=== PATIENT | female | born 1980 | race Caucasian/White ===

== ENCOUNTER 2024-12-05 11:45 | Emergency (ER) | payer SELFPAY ==
[~2024-12-05] VITALS: Ht 167.6 cm; Wt 54.4 kg
[2024-12-05 11:45] VITALS: BP 136/90; PULSE 105; RESP 18; TEMP 36.61404; O2SAT 100
[2024-12-05 12:29] LABS: BASOPHIL % 0.6 % (0.1-1.2); EOSINOPHIL # 0.2 10^3/uL (0.0-0.2); HEMOGLOBIN 13.4 g/dL (12.0-15.0); LYMPHOCYTES # 1.04 10^3/uL1 (1.0-4.8); LYMPHOCYTES % 19.7 % (24.0-44.0); MEAN CORP HGB 29.5 pg (26-34); MEAN CORP HGB CONCENTRATION 33.5 g/dL (33-36.5); MEAN CORP VOLUME 88.1 fL (78-100); MONOCYTES # 0.4 10^3/uL (0.3-0.8); NEUTROPHIL # 3.6 10^3/uL (1.8-7.7); NEUTROPHILS % 67.5 % (41.0-85.0); PLATELET COUNT 189 10^3/uL (150-400); RED BLOOD CELL 4.54 10^6/uL (4.00-5.20); RED CELL DISTRIBUTION WIDTH 12.2 % (11.5-14.5); WHITE BLOOD CELL 5.3 10^3/uL (4.5-11.0)
[2024-12-05 12:30] LABS: +ADD MANUAL DIFF(NO CHRG) NO
[2024-12-05] MEDS ORDERED: NS 1000ML 1,000 ML ONE (12:32)
[2024-12-05] MEDS ORDERED: ZOFRAN ONE (12:32)
[2024-12-05] MEDS: NS 1000ML 1,000 ML IV STA (12:38)
[2024-12-05] MEDS: ZOFRAN IV STA (12:38)
[2024-12-05 12:45] VITALS: BP 124/72; PULSE 105; RESP 18; TEMP 97.8; O2SAT 100
[2024-12-05 12:47] LABS: ALBUMIN(ML) 4.3 g/dL (3.4-5.0); ALBUMIN/GLOBULIN RATIO 1.343; ANION GAP 18.5; BUN/CREATININE RATIO 16.41 (10.0-20.0); CALCIUM 10.1 mg/dL (8.4-10.5); CARBON DIOXIDE 19.6 mmol/L (20.0-32); CREATININE SERUM 0.67 mg/dL (0.59-1.40); EST GFR, NON-AA 95.2 (>/=60); POTASSIUM 4.1 mmol/L (3.6-5.2)
[2024-12-05 13:51] VITALS: BP 116/67; PULSE 105; RESP 18; TEMP 97.8; O2SAT 100
== END 2024-12-05 13:55 | disposition home or self-care (01) ==
LOC: ER 11:45
DX: E86.0 Dehydration (principal); R11.2 Nausea with vomiting, unspecified; E11.65 Type 2 diabetes mellitus with hyperglycemia; E78.00 Pure hypercholesterolemia, unspecified; I25.2 Old myocardial infarction; F12.90 Cannabis use, unspecified, uncomplicated; Z91.148 Patient's other noncompliance with medication regimen for other reason
CPT/HCPCS: 99284; 96374; 96361; 80053; 85025; 82948; 36415; 93005; J7030; J2405

== ENCOUNTER 2024-12-06 02:54 | Emergency (ER) | payer SELFPAY ==
[~2024-12-06] VITALS: Ht 165.1 cm; Wt 63.5 kg
[2024-12-06 03:22] VITALS: BP 136/80; PULSE 104; RESP 18; TEMP 97.9; O2SAT 99
[2024-12-06 03:23] LABS: BASOPHIL % 0.4 % (0.1-1.2); EOSINOPHIL % 0.1 % (0.0-5.0); HEMATOCRIT(ML) 40.7 % (36.0-46.0); HEMOGLOBIN 13.1 g/dL (12.0-15.0); LYMPHOCYTES # 1.33 10^3/uL1 (1.0-4.8); MEAN CORP HGB 29.2 pg (26-34); MEAN CORP HGB CONCENTRATION 32.2 g/dL (33-36.5); MEAN CORP VOLUME 90.8 fL (78-100); MONOCYTES # 0.5 10^3/uL (0.3-0.8); MONOCYTES % 5.5 % (5.0-12.0); NEUTROPHIL # 6.4 10^3/uL (1.8-7.7); NEUTROPHILS % 77.6 % (41.0-85.0); PLATELET COUNT 213 10^3/uL (150-400); RED BLOOD CELL 4.48 10^6/uL (4.00-5.20); RED CELL DISTRIBUTION WIDTH 12.5 % (11.5-14.5); WHITE BLOOD CELL 8.3 10^3/uL (4.5-11.0)
[2024-12-06 03:25] LABS: +ADD MANUAL DIFF(NO CHRG) NO
[2024-12-06] MEDS ORDERED: HALDOL ONE (03:26)
[2024-12-06] MEDS ORDERED: NS 1000ML 1,000 ML ONE (03:26)
[2024-12-06] MEDS: NS 1000ML 1,000 ML IV ONE (03:30)
[2024-12-06] MEDS: HALDOL IV STA ×2 (03:31→06:37)
[2024-12-06 03:51] LABS: ALBUMIN(ML) 4.6 g/dL (3.4-5.0); ALBUMIN/GLOBULIN RATIO 1.393; ANION GAP 26.7; BUN/CREATININE RATIO 15.18 (10.0-20.0); CALCIUM 9.5 mg/dL (8.4-10.5); CARBON DIOXIDE 14.3 mmol/L (20.0-32); CREATININE SERUM 0.79 mg/dL (0.59-1.40); EST GFR, NON-AA 78.3 (>/=60)
[2024-12-06] MEDS ORDERED: ZOFRAN ONE (08:02)
[2024-12-06] MEDS: ZOFRAN IV PRN (08:11)
[2024-12-06 08:14] VITALS: BP 113/65; PULSE 115; RESP 18; O2SAT 97
[2024-12-06] MEDS ORDERED: NS 100ML 100 ML IV ONE (08:53)
[2024-12-06] MEDS ORDERED: PHENERGAN ONE (08:53)
[2024-12-06] MEDS: PHENERGAN IV PRN (08:59)
== END 2024-12-06 10:06 | disposition home or self-care (01) ==
LOC: ER 02:54
DX: E11.9 Type 2 diabetes mellitus without complications (principal); F41.9 Anxiety disorder, unspecified; R11.2 Nausea with vomiting, unspecified; E78.00 Pure hypercholesterolemia, unspecified; F12.90 Cannabis use, unspecified, uncomplicated; I25.2 Old myocardial infarction; Z93.3 Colostomy status; Z85.038 Personal history of other malignant neoplasm of large intestine
CPT/HCPCS: 99285; 74176; 96374; 96375; 96361; 96376; 74177; 80053; 85025; 36415; 84484; 83605; J7030; J1953; J2405; J2550; Q9963; Q9965; J1630